=== PATIENT | female | born 1995 | race Caucasian/White ===

== ENCOUNTER → 2020-01-03 12:00 | Outpatient (BNVA) | payer OTHER, SELFPAY | PROVIDERS: Family Provider Family Medicine; PCP Family Medicine; Visit Provider Emergency Medicine | DX: N89.8 Other specified noninflammatory disorders of vagina (principal) | CPT/HCPCS: 81000 ==

== ENCOUNTER → 2020-09-07 11:00 | Outpatient (BNVA) | payer OTHER, SELFPAY | PROVIDERS: Family Provider Family Medicine; PCP Family Medicine; Visit Provider Family Medicine | DX: R53.83 Other fatigue (principal); Z13.6 Encounter for screening for cardiovascular disorders; Z13.1 Encounter for screening for diabetes mellitus; F32.1 Major depressive disorder, single episode, moderate; Z12.4 Encounter for screening for malignant neoplasm of cervix; M54.41 Lumbago with sciatica, right side; M54.42 Lumbago with sciatica, left side; G89.29 Other chronic pain; R53.82 Chronic fatigue, unspecified; R68.89 Other general symptoms and signs; L85.3 Xerosis cutis; K59.04 Chronic idiopathic constipation; Z71.84 Encounter for health counseling related to travel | CPT/HCPCS: 80053; 80061; 82607; 82652; 82670; 83001; 84402; 84403; 84436; 84443; 84481; 85025; 86376; 88175 ==

== ENCOUNTER → 2020-11-05 14:47 | Outpatient (BNVA) | payer OTHER, SELFPAY | PROVIDERS: Family Provider Family Medicine; PCP Family Medicine; Visit Provider Emergency Medicine | DX: R30.0 Dysuria (principal) | CPT/HCPCS: 81000; 87086 ==

== ENCOUNTER → 2022-04-20 10:44 | Outpatient (BNVA) | payer OTHER, SELFPAY | PROVIDERS: Family Provider Family Medicine; PCP Family Medicine; Visit Provider Family Medicine | DX: F32.1 Major depressive disorder, single episode, moderate (principal); F41.1 Generalized anxiety disorder; Z30.09 Encounter for other general counseling and advice on contraception; Z12.4 Encounter for screening for malignant neoplasm of cervix | CPT/HCPCS: 87624 ==